=== PATIENT | female | born 1965 | race Caucasian/White ===

== ENCOUNTER 2016-11-24 13:32 | Observation (INO) | payer BC ==
[~2016-11-24] VITALS: Ht 172.7 cm; Wt 86.2 kg
[2016-11-24] MEDS ORDERED: HYGROTON 2525 MG/TAB PO (15:22)
[2016-11-24] MEDS ORDERED: WELLBUTRIN XL300 M1 PO (15:22)
[2016-11-24] MEDS ORDERED: IMURAN 50MG TAB50 MG PO (15:22)
[2016-11-24] MEDS ORDERED: PRISTIQ25 MG PO (15:23)
[2016-11-24] MEDS ORDERED: REMICADE V100 MG/VIA IV (15:30)
[2016-11-24 15:35] VITALS: BP 117/63; PULSE 68; TEMP 98.2
[2016-11-24 17:38] VITALS: BP 114/63; PULSE 77; TEMP 98.4
[2016-11-24 21:10] VITALS: BP 118/64; PULSE 73; TEMP 98.5
[2016-11-25] VITALS (11 sets, daily range): BP systolic 92–111; BP diastolic 48–67; PULSE 63–80; TEMP 97.2–98.1
== END 2016-11-25 17:00 | disposition home or self-care (01) ==
LOC: COL.RAD 13:32 → JCC 15:05
DX: K35.80 Unspecified acute appendicitis (principal); L40.50 Arthropathic psoriasis, unspecified
CPT/HCPCS: A9284; G0378; J1170; J1885; J2405; J2543; J2704; J3010; J7030; J7042; J7050; J7500; Q9967

== ENCOUNTER → 2016-12-31 | Outpatient (CLI) | payer BC ==
[~2016-12-31] MED LIST: HYGROTON 2525 MG/TAB PO; IMURAN 50MG TAB50 MG PO; PRISTIQ25 MG PO; REMICADE V100 MG/VIA IV; WELLBUTRIN XL300 M1 PO
== END ==
LOC: BHSO 07:59
DX: F33.42 Major depressive disorder, recurrent, in full remission (principal)

== ENCOUNTER → 2017-07-08 | Outpatient (CLI) | payer BC | LOC: BHSO 13:46 | DX: F33.42 Major depressive disorder, recurrent, in full remission (principal) ==

== ENCOUNTER → 2018-01-06 | Outpatient (CLI) | payer BC | LOC: BHSO 08:07 | DX: F33.42 Major depressive disorder, recurrent, in full remission (principal) | CPT/HCPCS: G0463 ==

== ENCOUNTER → 2018-04-18 | Outpatient (CLI) | payer BC ==
[~2018-04-18] VITALS: Ht 172.7 cm; Wt 90.2 kg
[~2018-04-18] MED LIST changes: +LASIX 20MG TABL20 MG PO
[2018-04-18 06:07] VITALS: BP 124/71; PULSE 68
[2018-04-18 07:05] VITALS: BP 113/61; PULSE 62
[2018-04-18 07:06] VITALS: BP 108/53; PULSE 86
[2018-04-18 07:07] VITALS: BP 102/49; PULSE 84
[2018-04-18 07:08] VITALS: BP 107/56; PULSE 80
[2018-04-18 07:10] VITALS: BP 104/58; PULSE 80
== END ==
LOC: COL.CARD 05:45
DX: R07.2 Precordial pain (principal); R07.89 Other chest pain; M54.2 Cervicalgia; M79.601 Pain in right arm; R68.84 Jaw pain; E78.5 Hyperlipidemia, unspecified; E78.00 Pure hypercholesterolemia, unspecified; M06.9 Rheumatoid arthritis, unspecified; F32.9 Major depressive disorder, single episode, unspecified; M79.1 Myalgia; Z80.3 Family history of malignant neoplasm of breast
CPT/HCPCS: A9502

== ENCOUNTER 2018-07-12 08:15 | Outpatient (RCR) | payer BC | END 2018-10-03 | disposition home or self-care (01) | LOC: MKS.ESL.PT | DX: G90.522 Complex regional pain syndrome I of left lower limb (principal); Z79.899 Other long term (current) drug therapy ==

== ENCOUNTER → 2018-07-13 | Outpatient (CLI) | payer BC | LOC: BHSO 08:05 | DX: F33.42 Major depressive disorder, recurrent, in full remission (principal) | CPT/HCPCS: G0463 ==

== ENCOUNTER → 2018-11-27 | Outpatient (CLI) | payer BC | LOC: MC.RAD 10:00 | DX: Z12.31 Encounter for screening mammogram for malignant neoplasm of breast (principal); N64.89 Other specified disorders of breast; N63.20 Unspecified lump in the left breast, unspecified quadrant ==

== ENCOUNTER → 2018-11-29 | Outpatient (CLI) | payer BC | LOC: MC.RAD 08:53 | DX: N63.21 Unspecified lump in the left breast, upper outer quadrant (principal); N64.89 Other specified disorders of breast | CPT/HCPCS: G0279 ==

== ENCOUNTER → 2018-12-05 | Outpatient (CLI) | payer BC | LOC: MC.RAD 07:49 | DX: N63.21 Unspecified lump in the left breast, upper outer quadrant (principal); N64.89 Other specified disorders of breast; Z98.82 Breast implant status ==

== ENCOUNTER → 2019-01-05 | Outpatient (CLI) | payer BC | LOC: BHSO 08:02 | DX: F33.42 Major depressive disorder, recurrent, in full remission (principal) | CPT/HCPCS: G0463 ==

== ENCOUNTER → 2019-06-05 | Outpatient (CLI) | payer BC | LOC: MC.RAD 12:56 | DX: Z09 Encounter for follow-up examination after completed treatment for conditions other than malignant neoplasm (principal); N63.20 Unspecified lump in the left breast, unspecified quadrant; Z98.890 Other specified postprocedural states | CPT/HCPCS: G0279 ==

== ENCOUNTER → 2019-07-13 | Outpatient (CLI) | payer BC | LOC: BHSO 08:14 | DX: F33.42 Major depressive disorder, recurrent, in full remission (principal) | CPT/HCPCS: G0463 ==

== ENCOUNTER → 2019-12-28 | Outpatient (CLI) | payer BC | LOC: BHSO 08:21 | DX: F33.41 Major depressive disorder, recurrent, in partial remission (principal) | CPT/HCPCS: G0463 ==

== ENCOUNTER 2020-04-17 06:35 | Day surgery (SDC) | payer BC ==
[~2020-04-17] VITALS: Ht 172.7 cm; Wt 87.5 kg
[2020-04-17 07:01] VITALS: BP 120/74; PULSE 96; TEMP 97.8
[2020-04-17] MEDS ORDERED: PRISTIQ 50 MG T50 MG PO (07:12)
--- NOTE | 2020-04-17 07:13 | NUR ---
TO RM AT 0642- CALL LIGHT IN REACH DR RAMIREZ TALKING WITH PATIENT
[2020-04-17 08:50] VITALS: BP 101/60; PULSE 80; TEMP 97.6
--- NOTE | 2020-04-17 08:50 | NUR ---
Patient brought back to [facility] [place] [facility] via cart. Ambulated to chair without difficulty. Patient is alert and oriented. Denies pain or nausea. Placed on monitors, stable. at bedside. Report recieved from BLANCA Chacon. Per MD to be sent for barium enema. Patient to remain NPO at this time. Warm blanket provided. Call granado within reach.
[2020-04-17 09:05] VITALS: BP 98/64; PULSE 73
--- NOTE | 2020-04-17 09:05 | NUR ---
Barium enema education packet reviewed and given to patient. Denies discomfort at this time. Will continue to monitor.
[2020-04-17 09:20] VITALS: BP 87/64; PULSE 72
[2020-04-17 09:35] VITALS: BP 94/56; PULSE 68
--- NOTE | 2020-04-17 09:35 | NUR ---
Per Radiology patient does not need IV for procedure. Patient states that she is feeling well and normally has low blood pressure. Will continue to monitor.
--- NOTE | 2020-04-17 09:45 | NUR ---
IV removed, tolerated without difficulty. Discharge instructions reviewed with patient and . All questions answered. Awaiting radiology to pick patient up. Will continue to monitor.
--- NOTE | 2020-04-17 10:25 | NUR ---
Radiology to bring patient over for imaging. Patient has belongings in hand. Patients with patient. Will drive home following procedure.
== END 2020-04-17 10:25 | disposition home or self-care (01) ==
LOC: SDCO 06:35
DX: Z12.11 Encounter for screening for malignant neoplasm of colon (principal); F32.9 Major depressive disorder, single episode, unspecified; Z11.59 Encounter for screening for other viral diseases; Z88.7 Allergy status to serum and vaccine
CPT/HCPCS: J2704; J7030

== ENCOUNTER 2020-04-19 19:02 | Emergency (ER) | payer BC ==
[~2020-04-19] VITALS: Ht 172.7 cm; Wt 86.4 kg
[~2020-04-19 19:02] MED LIST changes: +PRISTIQ 50 MG T50 MG PO
[2020-04-19 19:45] LABS: BASO # 0.1 (0.0-0.2); BASO % 0.8 % (0.0-2.0); EOS # 0.1 (0.0-0.7); EOS % 0.6 % (0-4.0); GRAN # 4.8 (1.4-6.5); GRAN % 60.9 % (42.2-75.2); HEMOGLOBIN 11.1 g/dl (12.5-16.0); LYMPH # 2.4 (1.2-3.4); LYMPH % 30.2 % (20.0-51.0); MEAN CELL VOLUME 89 fl (80.0-100.0); MEAN CORPUSCULAR HEMOGLOBIN 29 pg (27.0-31.0); MEAN CORPUSCULAR HGB CONC 33 g/dl (33.0-37.0); MEAN PLATELET VOLUME 9.9 fl (7.4-10.4); MONO # 0.6 (0.1-0.6); MONO % 7.1 % (1.7-9.3); PLATELET COUNT 325 K/mm3 (130-400); RED BLOOD COUNT 3.79 M/mm3 (4.10-5.30); REDCELL DISTRIBUTION WIDTH-CV 14.7 % (11.5-14.5)
[2020-04-19 19:46] LABS: HEMATOCRIT 33.6 % (37.0-47.0)
[2020-04-19 20:00] LABS: ALBUMIN 3.6 gm/dL (3.5-5.0); BILIRUBIN,TOTAL 0.3 mg/dL (0.0-1.0); C-REACTIVE PROTEIN 5.6 mg/dL (0.0-0.9); CALCIUM 8.7 mg/dL (8.4-10.2); CREATININE, serum 0.73 (0.52-1.25); POTASSIUM 3.1 mmol/L (3.4-5.0); TOTAL PROTEIN 7.1 gm/dL (6.4-8.2)
[2020-04-19 20:03] LABS: ERYTHROCYTE SEDIMENTATION RATE 47 mm/hr (0-30)
[2020-04-19 21:14] VITALS: BP 132/82; PULSE 72; TEMP 97.7
== END 2020-04-19 21:14 | disposition home or self-care (01) ==
LOC: COL.ER 19:02
PROVIDERS: Emergency Medicine
DX: M79.662 Pain in left lower leg (principal); M79.89 Other specified soft tissue disorders; R79.89 Other specified abnormal findings of blood chemistry; Z90.89 Acquired absence of other organs

== ENCOUNTER → 2020-04-21 | Outpatient (CLI) | payer BC | LOC: COL.VAS 08:45 | DX: M71.20 Synovial cyst of popliteal space [Baker], unspecified knee (principal); M79.89 Other specified soft tissue disorders; R79.89 Other specified abnormal findings of blood chemistry ==

== ENCOUNTER → 2020-08-15 | Outpatient (CLI) | payer BC | LOC: BHSO 08:24 | DX: F41.1 Generalized anxiety disorder (principal) | CPT/HCPCS: G0463 ==

== ENCOUNTER → 2021-07-08 | Outpatient (CLI) | payer BC | LOC: MC.RAD 14:03 | DX: Z12.31 Encounter for screening mammogram for malignant neoplasm of breast (principal) ==

== ENCOUNTER → 2022-02-03 | Outpatient (CLI) | payer BC ==
[~2022-02-03] MED LIST changes: +LEVOXYL0.075 MG PO; +WELLBUTRIN XL150 MG PO; +ZOCOR 20MG20 MG PO
== END ==
LOC: COL.VAS 12:56
DX: R07.9 Chest pain, unspecified (principal); R42 Dizziness and giddiness

== ENCOUNTER → 2023-04-22 | Outpatient (CLI) | payer BC | LOC: MC.RAD 10:57 | DX: Z12.31 Encounter for screening mammogram for malignant neoplasm of breast (principal) ==